=== PATIENT | female | born 1975 | race Caucasian/White ===

== ENCOUNTER 2016-06-22 05:48 | Day surgery (SDC) | payer OTHER ==
[~2016-06-22] VITALS: Ht 157.5 cm; Wt 73.5 kg
[2016-06-22] VITALS (11 sets, daily range): BP systolic 109–141; BP diastolic 56–71; PULSE 65–99; RESP 9–18; O2SAT 93–99
[~2016-06-22 05:48] MED LIST: ALLERCLEAR PO; CLIN30GE12 TP; FLUT9.9S NS; Lactated Ringer's 1,000 ML IV SCH; METR45CR TP; [UNRECOGNIZED DRUG - CODE] TP
[2016-06-22] MEDS ORDERED: Ondansetron 2 mg/mL 2 mL Inj ONE ×2 (05:49→10:07)
[2016-06-22] MEDS ORDERED: MetoCLOpramide 5 mg/mL 2 mL Inj ONE (05:49)
[2016-06-22] MEDS ORDERED: Phenylephrine/NS 100 mCg/mL 10 mL Syringe IVPUSH ONE (05:49)
[2016-06-22] MEDS ORDERED: fentaNYL-PF 50 mCg/mL 2 mL Inj ONE (05:49)
[2016-06-22] MEDS ORDERED: Dexamethasone 4 mg/mL Inj ONE (05:49)
[2016-06-22] MEDS ORDERED: Succinylcholine Chloride 20 mg/mL 5 mL Inj ONE (05:49)
[2016-06-22] MEDS ORDERED: HYDROmorphone 2 mg/mL Inj ONE (05:49)
[2016-06-22] MEDS ORDERED: Propofol 10,000 mCg/mL 20 mL Inj ONE (05:49)
[2016-06-22] MEDS ORDERED: Lactated Ringer's 1,000 ML IV ONE (06:51)
[2016-06-22] MEDS: CeFAZolin Inj 2 GM in IV Premix 1 EACH IV SCH ×2 (07:10→07:41)
--- NOTE | 2016-06-22 07:25 | PCM.HPANE ---
Patient Data Date of Service: June 22, 2016 Surgeon Admitting Provider: Attending Provider:Edin Lai MD Primary Care Physician:Marisol Arguello MD Other Provider:Javon De Leon Anesthesia Reason for Visit Bilateral Macromastia,Back Pain,Rash Ht/WT & BMI Height (Feet): 5 Height (Inches): 2.00 Weight (Kilograms): 73.5 Body Mass Index 29.00 Allergies Coded Allergies: No Known Allergies (Verified , 06/17/16) Past Anesthesia History Anesthesia History: Denies:: Fam Anesthesia Reaction, Fam Malignant Hypertherm Diabetes History Hx Diabetes?: No MRSA MRSA: No Medications Home Meds Incl Beta Edgar: No Reported Medications Clindamycin/Tretinoin (Veltin Gel)30 Gm Gel..gram.1 Applic TP HS 1.2%-0.025% 06/17/16 Sulfacetamide/Sulfur/Fsbjvxe46 ([place] Kit)1 Each Kit1 Each TP BID 06/17/16 Metronidazole (Metronidazole Cream)45 Gm Cream..g.1 Applic TP DAILY #45 GM Ref 0 0.75% 06/17/16 Fluticasone Propionate (Flonase Allergy Relief)50 Mcg/Actuation Adamant.susp9.9 Ml NS DAILY 06/17/16 [Allerclear] No Conflict Check10 Mg PO DAILY 06/17/16 Discontinued Reported Medications Amoxicillin/Clav K 875-125 mg (Augmentin 875-125 mg)1 Each Tablet1 Tablet PO BID #20 TABLET Ref 0 06/17/16 History History of ENT Problems?: Yes HEENT History: Positive for:: Sinus Problem (ALLERGIC RHINITIS) Denture Type: None Teeth Condition: Tooth Decay Hx of Heart Problems?: No Cardiovascular History: Denies:: Chest Pain Heart Murmur Hypertension Hx of Respiratory Problem?: No Respiratory History: Denies:: Use of C-PAP Machine Hx Neurologic Problems?: No Neurological History: Denies:: CVA Seizures TIA Hx of GI Problems?: No Hx of Problems?: No Female Hx: Positive for:: Problems with Breasts? (B/L MACROMASTIA=CURRENT PROBLEM) Denies:: Currently Skin History: Positive for:: History Skin Disorders? (ROSACEA) Denies:: Pressure Ulcers Hx Musculoskeletal Problems?: Yes Musculoskeletal History: Denies:: Back Injury (C/OF BACK PAIN R/T MACROMASTIA) Hx of Psycho/Social Problems?: No Hx Surgeries?: No Hx Any Other Health Problems?: No Other History: Positive for:: Hospitalization ([facility]ILDBIR[facility]) Denies:: Cancer Endocrine Disease Thyroid Disease Hx Diabetes: No Hx Alcohol Use: YesAlcoholic Drinks Per Day: 1-2/WEEK Smoking Status: Former Smoker Have You Smoked inLast 12 mo: NoApprox How Many Cigarettes/day: 1/2 PPD X 12YRS Stop/Bang Treated for Sleep Apnea?: No Do You Have a CPAP Machine?: No S-Snoring: Do You Snore Loudly: No T-Tired: feel tired, fatigued: No O-Obsered: Observed not breath: No P-Blood Pressure: treated: No B- Body Mass Index > 35 kg/m2: No A- Age over 50: No N- Neck Large Circumference: No G- Gender Male: No SABAS Total Score: 0 SABAS Risk Assessment: Low Risk, <3 Yes Risk Assessment Category Category 1A: Patient has history of documented sleep apnea, and HAS NOT received any narcotic, sedative or anesthesia administration during this stay. Category 1B: Patient has history of documented sleep apnea, and HAS received any narcotic , sedative or anesthesia administration during this stay Category 2: Patient has SUSPECTED Obstructive Sleep Apnea, and HAS received any narcotic , sedative or anesthesia administration during this stay. Category 3: Patient has SUSPECTED Obstructive Sleep Apnea and HAS NOT received narcotic, sedative or anesthesia administration during this stay. Category 4: Outpatient in Procedural Areas with known sleep apnea or who screen positive for High Risk via the STOP/BANG questionnaire. Exam Exam Vital Signs Vital Signs Date Time Temp Pulse Resp B/P Pulse Ox O2 Delivery O2 Flow Rate FiO2 06/22/16 06:45 36.2 84 18 125/70 98 Room Air General Appearance: Alert, Oriented X3, Cooperative, No Acute Distress HEENT/AIRWAY: MP 2, Neck Movement (FROM), Mouth Opening (3), Other (TMD3, OVERBITE) Lungs: Diminished Heart: Exam Unremarkable, Regular Rate/Rhythm, Normal S1, Normal S2, No Murmurs /Rubs/Gallops Meds/Labs/Diagnostics Admission Meds Current Medications Cefazolin Sodium/ Dextrose 2 gm/ Premix 50 ml @ 100 mls/hr PREOP IV Last administered on 06/22/16t 07:10; Start 06/22/16 at 06:00; Stop 06/22/16 at 17:00 Lactated Ringer's (Lr) 1,000 ml @ ud STK-MED ONCE IV Last administered on 06/22t 06:51; Start 06/22/16 at 06:51; Stop 06/22/16 at 06:52; Status DC Plan Impression Patient chart reviewed, patient interviewed and anesthestic plan with risks, benefits, and alternatives discussed, and informed consent obtained. ASA Physical Status: ASA1 Normal Healthy Anesthetic Plan: GA Bene/Risks/Altern/Consents: Yes HP Complete Prior to Induction: Yes Shawn Vargas MD June 22, 2016 07:24
[2016-06-22] MEDS ORDERED: oxyCODONE-Acetamin 5-325 mg Tablet PO PRN (10:00)
[2016-06-22] MEDS ORDERED: Phenylephrine 10,000 mCg/mL Inj IVPUSH PRN (10:20)
[2016-06-22] MEDS ORDERED: Ondansetron 2 mg/mL 2 mL Inj IVPUSH PRN (10:20)
[2016-06-22] MEDS ORDERED: Lactated Ringer's 500 ML IV PRN (10:20)
[2016-06-22] MEDS ORDERED: fentaNYL-PF 50 mCg/mL 2 mL Inj IVPUSH PRN (10:20)
[2016-06-22] MEDS ORDERED: MetoCLOpramide 5 mg/mL 2 mL Inj IVPUSH PRN (10:20)
[2016-06-22] MEDS ORDERED: Dexamethasone 4 mg/mL Inj IVPUSH PRN (10:20)
[2016-06-22] MEDS ORDERED: Lactated Ringer's 1,000 ML IV SCH (10:20)
[2016-06-22] MEDS ORDERED: EPHEDrine Sulfate 50 mg/mL Inj IVPUSH PRN (10:20)
[2016-06-22] MEDS ORDERED: HYDROmorphone 1 mg/mL Inj IVPUSH PRN (10:20)
[2016-06-22] MEDS ORDERED: hydrOXYzine Inj 50 MG/1 mL SDV IM ONE (12:42)
[2016-06-22] MEDS ORDERED: hydrOXYzine Inj 50 MG/1 mL SDV IM PRN (13:30)
[2016-06-22] MEDS ORDERED: EPHEDrine Sulfate 50 mg/mL Inj IM PRN (13:30)
--- NOTE | 2016-06-23 00:48 | PCM.ANEP1 ---
Post Anesthesia Phase 1 PACU Phase 1 Assessment Date of Service: June 22, 2016 Anesthetic Administered: GA Level of Alertness: Awake, talking PINEDA's with Equal Strength: Yes Pain: No Pain Scale Score: 0 Nausea or Vomiting: No Oxygen Delivery: Simple Mask Lungs: Diminished Complications: No Shawn Vargas MD June 23, 2016 00:48
--- NOTE | 2016-06-23 11:47 | OP ---
[address] [address] OPERATIVE REPORT PATIENT: BESS GARCIA : 1975 MR#: [id number] ADMIT: 06/22/2016 JOB ID: [id number] DATE OF SURGERY: 06/22/2016 PREOPERATIVE DIAGNOSIS(ES): Bilateral symptomatic macromastia. POSTOPERATIVE DIAGNOSIS(ES): Bilateral symptomatic macromastia. PROCEDURE: Bilateral breast reduction. SURGEON: Edin Lai M.D. FOLLOW UP MANAGER: Maximion Prado PA-C who was present for accessory retraction, exposure and closure. ANESTHESIA: General anesthesia. COMPLICATIONS: None apparent. ESTIMATED BLOOD LOSS: 50 cc. SPECIMEN: Bilateral breast tissue to Pathology. Right side 440 g, left side 410 g. DRAINS: Bilateral #15 round Sebastián drains, one on each side. INDICATIONS: This is a 40-year-old female patient with bilateral symptomatic macromastia that has been refractory to conservative management. At this point, she presents for bilateral breast reduction. PROCEDURE AND FINDINGS: The patient was identified in the preoperative area and surgical site was marked. With the patient in the sitting position, I marked the patient's sternal notch at midline. Inframammary folds were marked. Culver pattern incisions were then marked with the new nipple-areolar complex at 19 cm and the Culver pattern limbs at 8 cm each. The patient was then taken back to the operating room and placed supine on the operating table. Appropriate time-outs were taken. General anesthesia was induced smoothly. I then completed the Culver pattern marking with the patient in the supine position. The patient was then prepped and draped in the usual sterile manner. I first turned my attention to the right breast. The new nipple-areolar complex was marked with a 38 mm nipple sizer. The inferior pedicle was then designed that is 9 cm at the base and 7 cm at the level of the inferior border of the nipple-areolar complex. Incision was then made around the inferior pedicle and around the new nipple-areolar complex. Intervening skin was then de-epithelialized. The incision was then made along the rest of the Culver pattern incision with a #10 blade. I then deepened the incision down into the subcutaneous tissue. The incision was then deepened around the pedicle into the subcutaneous tissue. I then elevated the superior flap. Medially the flap was kept approximately 2 cm in thickness, thickening to approximately 3 cm as I approached at the base of the flap. Laterally, the flap was elevated off of the breast capsule. I then developed the inferior pedicle by deepening the incision down to the chest wall while flaring out slightly to capture more perforators. At the superior aspect of the pedicle, the incision was carried through the breast tissue to the posterior breast capsule where it was then followed down to the chest wall. Once this has been done, the tissue between the pedicle dissection and the skin flaps were then elevated off of the chest wall and passed off to Pathology as a specimen. Hemostasis was obtained with electrocautery. At this point, the incision was temporarily stapled together. Using a 38 mm nipple sizer, a new nipple keyhole was then marked centered at 6.5 cm from the inframammary fold. I then turned my attention to the left breast. A similar reduction was then carried out. Again, the nipple-areolar complex was marked with a 38 mm nipple sizer. Inferior pedicle was marked. The incisions were then made around the nipple areolar complex and the inferior pedicle. Intervening skin was de-epithelialized. The incisions were then made around the rest of the Culver pattern incision with a 10 blade. I then elevated the superior skin flaps and defined the inferior pedicle. Intervening soft tissue was resected and passed off to Pathology as a specimen. Hemostasis was obtained with electrocautery. The incision was temporarily stapled together. Again, new nipple-areolar complex keyhole was marked centered at 6.5 cm from the inframammary fold. This was done using a 38 mm sizer. The incisions were then made around the keyhole on both sides. The nipples were externalized. The drains were then placed into the surgical site exiting at the lateral end of the incisions bilaterally. Incisions were then reapproximated first with a layer of 3-0 Monocryl deep dermal suture, followed by 4-0 Monocryl running subcuticular suture. The patient tolerated the procedure well. Needle count, sponge count and instrument counts were correct at the end of the procedure. The patient was extubated and transported to recovery in stable condition.
--- NOTE | 2016-06-24 11:01 | PATH ---
SURGICAL PATHOLOGY Attending Physician:Edin Lai CASE STATUS: Signed Out PATIENT NAME: BESS GARCIA PID: [id number] : 1975 DATE COLLECTED:06/22/2016 00:00 SPECIMEN: 1: Breast Reduction 2: Breast Reduction CLINICAL HISTORY: BILATERAL MACROMASTIA 1). RIGHT BREAST TISSUE 2). LEFT BREAST TISSUE FINAL DIAGNOSIS: 1. 2.RIGHT AND LEFT BREAST TISSUE, INCLUDING SKIN (REDUCTION MAMMOPLASTY): BENIGN BREAST TISSUE, NEGATIVE FOR ATYPIA. 414 GRAMS OF TISSUE FROM THE RIGHT. 402 GRAMS OF TISSUE FROM THE LEFT. ICD10 CODE N62 GROSS DESCRIPTION: The specimens are received in formalin, labeled with the patient's name, and sublabeled as the following: (1) right breast tissue; (2) left breast tissue. (1) The specimen consists of multiple pieces of breast tissue (414 g, 15.8 x 13.5 x 3.8 cm in aggregate) partially covered by skin (13.5 x 12.5 cm). The breast tissue is fatty with no nodules, masses or lesions identified. The skin is reveles-white and unremarkable. Section code: (1A, 1B) breast tissue, risk control representative. (2) The specimen consists of multiple pieces of breast tissue (402 g, 15.2 x 14.5 x 3.5 cm in aggregate) partially covered by skin (13.5 x 13.5 cm). The breast tissue is fatty with no nodules, masses or lesions identified. The skin is reveles-white and unremarkable. Section code: (2A, 2B) breast tissue, risk control representative. 06/23/16 MICRO DESCRIPTION: See diagnosis. ICD-9 CODES: CPT CODES: 1: 51010 2: 83137 Electronically Signed Out Keaton Larson MD [facility] [address], [place] [address] Technical component performed at [facility], [facility] [address], [place], [address]
== END 2016-06-22 23:59 | disposition home or self-care (01) ==
LOC: SAS 05:48
PROVIDERS: ATTEND Plastic Surgery
DX: N62 Hypertrophy of breast (principal); M54.6 Pain in thoracic spine; R21 Rash and other nonspecific skin eruption; M50.30 Other cervical disc degeneration, unspecified cervical region; J30.9 Allergic rhinitis, unspecified
CPT/HCPCS: 19318; J0330; J0690; J1100; J1170; J2250; J2370; J2405; J2765; J3010; J3410; J7120